=== PATIENT | male | born 1985 | race African-American/Black ===

== ENCOUNTER 2023-07-11 11:04 | Emergency (ER) | payer OTHER ==
--- NOTE | 2023-07-11 11:47 | XRAY Report ---
PROCEDURE: Chest 1V INDICATIONS: CP TECHNIQUE: One view of the chest was acquired. COMPARISON: None. FINDINGS: Surgical changes and devices: None. Lungs and pleura: No pleural effusions or pneumothorax. Lungs are clear. Mediastinum: Mediastinal contours appear normal. Heart size is normal. Bones and chest wall: No suspicious bony lesions. Overlying soft tissues appear unremarkable. IMPRESSION: No acute cardiopulmonary process. Reviewed by: Laura Burgess MD on 07/11/2023 11:45 AM [facility] Approved by: Laura Burgess MD on 07/11/2023 11:45 AM [facility] Station ID: [id number]
[2023-07-11 11:53] LABS: BASOPHILS % (AUTO) 0.5 %; EOSINOPHILS # (AUTO) 0.1 10^3/uL (0.0-0.7); EOSINOPHILS % (AUTO) 1.6 %; LYMPHOCYTES # (AUTO) 2.3 10^3/uL (1.5-3.5); LYMPHOCYTES % (AUTO) 36.8 %; MEAN CORPUSCULAR HEMOGLOBIN 26.4 pg (27.0-31.0); MEAN CORPUSCULAR HGB CONC 30.2 g/dL (32.0-36.0); MEAN CORPUSCULAR VOLUME 87.4 fL (80.0-94.0); MEAN PLATELET VOLUME 10.2 fL (7.4-11.4); MONOCYTES # (AUTO) 0.5 10^3/uL (0.0-1.0); MONOCYTES % (AUTO) 8.4 %; NEUTROPHILS # (AUTO) 3.3 10^3/uL (1.5-6.6); NEUTROPHILS % (AUTO) 52.5 %; PLT - PLATELET COUNT 308 10^3/uL (130-450); RED BLOOD COUNT 4.92 10^6/uL (4.70-6.10); WHITE BLOOD COUNT 6.2 x10^3/uL (4.8-10.8)
[2023-07-11 12:10] LABS: ALBUMIN 4.3 g/dL (3.2-5.5); ALBUMIN/GLOBULIN RATIO 1.3 (1.0-2.2); BILIRUBIN,TOTAL 0.3 mg/dL (0.2-1.0); CALCIUM 9.6 mg/dL (8.5-10.3); CREATININE 1.2 mg/dL (0.6-1.3); POTASSIUM 4.1 mmol/L (3.5-4.5); TOTAL PROTEIN 7.6 g/dL (6.4-8.9)
[2023-07-11 12:17] LABS: TROPONIN I HIGH SENSITIVITY 2.3 ng/L (2.3-19.7)
--- NOTE | 2023-07-11 13:01 | ED Physician Documentation ---
PD HPI CHEST PAIN - Stated complaint Stated Complaint: CHEST PX - Chief complaint Chief Complaint: Cardiac - History obtained from History obtained from: Patient - Additional information Additional information: Patient is a 37-year-old male presenting for evaluation of left-sided chest pain. Patient states that this has been going on intermittently At least a month. He reports significant life stressors as he Is active duty [employer] and he had orders to go to [employer]. He was all set to move with his stuff in storage and then his orders were pulled and he Is unsure when he will move or where to and f eels that a number of things are out of his control and that are not being communicated to him. He states he has asked repeatedly for answers but does not feel like he is getting any. Today he was at the [employer] clinic for an appointment. He was early for his appointment so he sat outside in his car and was planning just to sit there for 10 or 15 minutes but fell asleep and then was late to the appointment. They then stated he did have to wait to be seen until 1:00 and then came back and said that it would be 230. During this time he reports feeling more chest pain and thus they called 911. He states that he goes to the gym and works out regularly. He states that he does not feel chest pain when he does this and feels really good when he is working out. Nothing takes the pain worse. It does not go anywhere. The pain is resolved prior to coming here. He was recently given a prescription for propranolol but has not been taking it. Denies otherwise a history of hypertension, hyperlipidemia or diabetes. Denies a family history of early CAD. No recent travel or immobilization. Review of Systems Constitutional: denies: Fever Cardiac: reports: Chest pain / pressure Respiratory: denies: Dyspnea GI: denies: Abdominal Pain Musculoskeletal: denies: Extremity pain, Extremity swelling PD PAST MEDICAL HISTORY - Past Medical History Past Medical History: No - Present Medications Home Medications: Ambulatory Orders Medication Instructions Recorded Confirmed No Known Home Medications 07/11/23 07/11/23 - Allergies Allergies/Adverse Reactions: Allergies Allergy/AdvReac Type Severity Reaction Status Date / Time No Known Drug Allergies Allergy Verified 07/11/23 11:19 - Social History Does the pt smoke?: No Smoking Status: Never smoker Does the pt drink ETOH?: Yes PD ED PE NORMAL - General General: Alert and oriented X 3, No acute distress, Well developed/nourished - HEENT HEENT: Atraumatic, Moist mucous membranes, Pharynx benign - Neck Neck: Supple, no meningeal sign - Cardiac Cardiac: RRR, Strong equal pulses - Respiratory Respiratory: No respiratory distress, Clear bilaterally - Abdomen Abdomen: Normal bowel sounds, Soft, Non tender, Non distended - Derm Derm: Warm and dry - Extremities Extremities: No edema, No calf tenderness / cord - Neuro Neuro: Normal speech Results - Vitals Vitals: Vital Signs - 24 hr 07/11/23 07/11/23 11:14 13:06 Temperature 36.9 C Heart Rate 79 75 Respiratory 20 18 Rate Blood Pressure 147/94 H 140/97 H O2 Saturation 95 99 Oxygen O2 Source Room air - EKG (time done) 1132 EKG releavant findings:: EKG personally interpreted by author of this note. Relevant findings are: Rate 68, normal sinus rhythm, no STEMI, - Labs Labs: Laboratory Tests 07/11/23 07/11/23 11:47 11:47 WBC 6.2 RBC 4.92 Hgb 13.0 L Hct 43.0 MCV 87.4 MCH 26.4 L MCHC 30.2 L RDW 13.0 Plt Count 308 MPV 10.2 Neut # (Auto) 3.3 Lymph # (Auto) 2.3 [place] # (Auto) 0.5 Eos # (Auto) 0.1 Baso # (Auto) 0.0 Absolute Nucleated RBC 0.00 Nucleated RBC % 0.0 Sodium 140 Potassium 4.1 Chloride 106 Carbon Dioxide 29 Anion Gap 5.0 L BUN 12 Creatinine 1.2 Estimated GFR (MDRD) 83 L Glucose 99 Calcium 9.6 Total Bilirubin 0.3 AST 18 ALT 28 Alkaline Phosphatase 59 Troponin I High Sens 2.3 Total Protein 7.6 Albumin 4.3 Globulin 3.3 Albumin/Globulin Ratio 1.3 Lipase 74 PD Medical Decision Making - ED course Complexity details: reviewed results, d/w patient ED course: Patient is a 37-year-old male presenting for evaluation of chest pain in the setting of significant stress. He is EKG is reviewed and without signs of acute ischemia. He is chest pain-free here. Labs including CBC, chemistry and a high sensitive troponin are negative. He is low risk for ACS per the heart score. His symptoms have been ongoing for several hours prior to arrival here. They are also very atypical and that he is able to go to the gym and workout and states that he does not have chest pain during these times and actually feels quite good. I did recommend close follow-up with his primary care provider. He is also advised on concerning symptoms to return for. PERC negative. Doubt dissection as pain is not migratory. Departure - Departure Disposition: 01 Home, Self Care Clinical Impression: Chest pain Condition: Stable Instructions: ED Chest Pain Atypical Unkn Cause Follow-Up: MERCEDES Graham [Provider Group] Comments: Your testing today does not show signs of a heart attack. I would recommend close follow-up with your primary care provider at the [facility] if you may need further testing regarding your recent symptoms. Return to the ER with any worsening. Forms: PCP List Discharge Date/Time: 07/11/23 13:07
[2023-07-11 13:11] VITALS: BP 140/97; O2SAT 99
== END 2023-07-11 13:07 | disposition home or self-care (01) ==
LOC: ED 11:04
DX: R07.9 Chest pain, unspecified (principal)
CPT/HCPCS: 36415; 80053; 83690; 84484; 85025; 93005; 99283; 99284